=== PATIENT | male | born 1935 | race Caucasian/White ===

== ENCOUNTER 2018-01-06 13:43 | Emergency (ER) | payer MEDICARE, BC ==
--- NOTE | 2018-01-06 15:43 | RAD ---
THREE VIEWS LUMBAR SPINE 01/06/18 INDICATION: Low back pain. FINDINGS: There are laminectomy changes at L5. Laminotomy changes are seen at L4. There is mild degenerative de xtroscoliosis of the lumbar spine. there is multilevel moderate disc degenerative disease and facet o steoarthritic change. No acute fracture or subluxation grossly evident. There is scattered vascular c alcifications involving the abdominal aorta. IMPRESSION: 1. No acute osseous abnormality. 2. Postoperative change of the lumbar spine. 3. Moderate spondylosis of the lumbar spine. POS: CHRIS
== END 2018-01-06 16:11 | disposition home or self-care (01) ==
LOC: SCSER 13:43
DX: M54.42 Lumbago with sciatica, left side (principal); I10 Essential (primary) hypertension
CPT/HCPCS: 72100

== ENCOUNTER 2018-01-18 09:49 | Outpatient (CLI) | payer MEDICARE, BC | END 2018-01-18 09:50 | disposition home or self-care (01) | LOC: TBSIIMAG 09:49 | PROVIDERS: ATTEND Neurological Surgery | DX: Z53.8 Procedure and treatment not carried out for other reasons (principal) | CPT/HCPCS: 72158; 82565 ==

== ENCOUNTER 2018-10-15 03:34 | Emergency (ER) | payer MEDICARE, BC | END 2018-10-15 04:42 | disposition home or self-care (01) | LOC: SCSER 03:34 | DX: R05 Cough (principal); K21.9 Gastro-esophageal reflux disease without esophagitis; I10 Essential (primary) hypertension | CPT/HCPCS: J7620 ==

== ENCOUNTER 2018-10-22 12:12 | Emergency (ER) | payer MEDICARE, BC ==
[2018-10-22 13:13] LABS: Hemoglobin 14.1 g/dL (14.0-18.0); Mean Corpuscular HGB CONC 34.8 g/dL (32.0-36.0); Mean Corpuscular Hemoglobin 30.6 pg (27.0-31.0); Mean Corpuscular Volume 88.1 fL (78.0-98.0); Mean Platelet Volume 8.8 fL (7.4-10.4); Platelet Count 148 thou/uL (130-400); Red Blood Cell (RBC) Count 4.61 mill/uL (4.70-6.10); White Blood Cell (WBC) Count 9.1 thou/uL (4.8-10.8)
--- NOTE | 2018-10-22 13:18 | RAD ---
Chest 2 views HISTORY: Cough. COMPARISON: 10/13/2018. FINDINGS: Cardiac silhouette and pulmonary vasculature are unremarkable. Mediastinum is midline. Line ar atelectasis at the left lateral costophrenic angle is similar in appearance to the prior exam. Calcification over the aorta. No confluent airspace consolidation, pneumothorax, or pleural fluid are apparent. IMPRESSION: Atherosclerosis. Chronic-type findings are stable. No active cardiopulmonary abnormalities are demonstrated.
[2018-10-22 13:27] LABS: ALT (SGPT) 62 U/L (8-55); AST (SGOT) 32 U/L (5-34); Albumin 1.8 g/dL (3.4-4.8); Alkaline Phosphatase 54 U/L (40-150); Anion Gap 7 mmol/L (10-20); BUN (Urea Nitrogen) 17 mg/dL (8.4-25.7); Bilirubin, Total 0.7 mg/dL (0.2-1.2); CK (CPK) 359 U/L (30-200); Calc. Creatinine Clearance 0 mL/min (70-130); Calcium 7.7 mg/dL (7.8-10.44); Carbon Dioxide 26 mmol/L (23-31); Chloride 100 mmol/L (98-107); Estimated GFR-MDRD Greater than 90; Globulin 2.3 g/dL (2.4-3.5); Glucose 109 mg/dL (83-110); Lipase 28 U/L (8-78); Potassium 4.1 mmol/L (3.5-5.1); Protein, Total 4.1 g/dL (5.8-8.1); Sodium 129 mmol/L (136-145)
[2018-10-22 13:33] LABS: Lymphocytes 9 % (21-51); MDiff Complete? YES; Monocytes 11 % (0-10); Neutrophil 79 % (42-75)
[2018-10-22 13:34] LABS: Troponin I Less than 0.010 ng/mL (< 0.028)
[2018-10-22 13:37] LABS: Bilirubin Negative (Negative); Blood, Urine Negative (Negative); Clarity Clear (Clear); Glucose, Urine (Dipstick) Negative (Negative); Leukocyte Negative (Negative); Nitrite Negative (Negative); Protein, Urine (Dipstick) 100 mg/dL (Neg-Trace); Specific Gravity, Urine 1.015 (1.005-1.030); Urobilinogen 0.2 mg/dL (0.2-1.0)
[2018-10-22 13:51] LABS: Bacteria/HPF Rare-Few HPF (None Seen); RBC/HPF 0-3 HPF (0-3); Squamous Epithelial None Seen HPF (0-3); WBC/HPF 0-3 HPF (0-3)
== END 2018-10-22 14:00 | disposition home or self-care (01) ==
LOC: SCSER 12:12
DX: R60.0 Localized edema (principal); K21.9 Gastro-esophageal reflux disease without esophagitis; I10 Essential (primary) hypertension; Z79.51 Long term (current) use of inhaled steroids; Z79.899 Other long term (current) drug therapy
CPT/HCPCS: 71046; 80053; 81003; 81015; 82550; 83690; 83880; 84484; 85025; 93005

== ENCOUNTER 2018-10-22 15:19 | Outpatient (CLI) | payer MEDICARE, BC ==
--- NOTE | 2018-10-22 16:22 | ULT ---
Bilateral renal ultrasound CLINICAL INDICATION: Chronic renal failure COMPARISON: 09/03/2015 FINDINGS: Right kidney: Complex hypoechoic focus of the right kidney, slightly exophytic from the superior pole , not well discerned. No overt hydronephrosis of the right kidney. Left kidney: No solid mass, or hydronephrosis. There is a prominent sized left renal cyst, documented greater than 9 cm, with suggestion of mild internal debris. Additional, smaller cyst measures approximately 4 cm. Urinary bladder: Incompletely distended, limiting assessment. A mild post void residual is seen. IMPRESSION: Bilateral renal cysts, as above. No evidence of hydronephrosis within either kidney. Decompressed urinary bladder.
== END 2018-10-22 15:20 | disposition home or self-care (01) ==
LOC: SCSULT 15:19
PROVIDERS: ATTEND Internal Medicine Nephrology
DX: N18.3 Chronic kidney disease, stage 3 (moderate) (principal); N28.1 Cyst of kidney, acquired; N32.89 Other specified disorders of bladder
CPT/HCPCS: 71046; 76770; 80053; 81003; 81015; 82550; 83690; 83880; 84484; 85025; 93005

== ENCOUNTER 2019-03-26 09:47 | Outpatient (CLI) | payer MEDICARE, BC ==
[~2019-03-26 09:47] MED LIST: Iopamidol 370 76% 100 ML VIAL ONE
--- NOTE | 2019-03-26 12:22 | CT ---
CT abdomen and pelvis with IV and oral contrast HISTORY: Abdominal pain. Weight loss. COMPARISON: 10/05/2009. FINDINGS: Lung bases are clear. Multiple cysts are again seen throughout the liver. The large cyst at the posterior aspect of the left kidney now measures up to 10.5 x 8.5 cm greatest diameters, significantly larger than on the previous study. Smaller cysts involve the cortex of each kidney. Gallbladder surgically absent. Calcification throughout the arterial structures. Diverticula througho ut the colon. No evidence of inflammation. Postoperative changes lower lumbar spine. Small hiatal hernia. IMPRESSION: Significant interval enlargement of the left renal cyst, now measuring up to 10.5 cm. The se are usually asymptomatic, even at this size. Diverticulosis. No evidence of diverticulitis. Atherosclerosis. Small hiatal hernia.
== END 2019-03-26 09:48 | disposition home or self-care (01) ==
LOC: SCSCT 09:47
PROVIDERS: ATTEND Family Medicine
DX: R63.4 Abnormal weight loss (principal); R10.32 Left lower quadrant pain; I70.90 Unspecified atherosclerosis; K44.9 Diaphragmatic hernia without obstruction or gangrene; N28.1 Cyst of kidney, acquired; K57.90 Diverticulosis of intestine, part unspecified, without perforation or abscess without bleeding
CPT/HCPCS: 74177; Q9967

== ENCOUNTER 2022-07-22 11:28 | Outpatient (CLI) | payer MEDICARE, BC | END 2022-07-22 11:29 | disposition home or self-care (01) | LOC: BICRAD 11:28 | PROVIDERS: ATTEND Family Medicine | DX: R07.89 Other chest pain (principal); J90 Pleural effusion, not elsewhere classified; J98.11 Atelectasis | CPT/HCPCS: 71046 ==

== ENCOUNTER 2022-08-12 16:28 | Outpatient (CLI) | payer MEDICARE, BC | END 2022-08-12 16:29 | disposition home or self-care (01) | LOC: BICRAD 16:28 | PROVIDERS: ATTEND Family Medicine | DX: J90 Pleural effusion, not elsewhere classified (principal) | CPT/HCPCS: 71046 ==

== ENCOUNTER 2022-08-19 09:04 | Outpatient (CLI) | payer MEDICARE, BC ==
[2022-08-19] MEDS ORDERED: Iopamidol 370 76% 100 ML VIAL ONE (13:43)
== END 2022-08-19 09:05 | disposition home or self-care (01) ==
LOC: CT 09:04
PROVIDERS: ATTEND Family Medicine
DX: J90 Pleural effusion, not elsewhere classified (principal); I25.10 Atherosclerotic heart disease of native coronary artery without angina pectoris
CPT/HCPCS: 71260; 82565; Q9967

== ENCOUNTER 2022-08-30 10:03 | Outpatient (CLI) | payer MEDICARE, BC ==
[2022-08-30] MEDS ORDERED: Iopamidol-370 76% 500 ML 1 ML ONE (11:33)
== END 2022-08-30 10:04 | disposition home or self-care (01) ==
LOC: BICCT 10:03
PROVIDERS: ATTEND Family Medicine
DX: K40.90 Unilateral inguinal hernia, without obstruction or gangrene, not specified as recurrent (principal); J90 Pleural effusion, not elsewhere classified; N28.1 Cyst of kidney, acquired; K76.89 Other specified diseases of liver; K57.90 Diverticulosis of intestine, part unspecified, without perforation or abscess without bleeding; N40.0 Benign prostatic hyperplasia without lower urinary tract symptoms
CPT/HCPCS: 74178; Q9967

== ENCOUNTER 2022-09-14 10:02 | Outpatient (CLI) | payer MEDICARE, BC | END 2022-09-14 10:03 | disposition home or self-care (01) | LOC: RAD 10:02 | PROVIDERS: ATTEND Internal Medicine Critical Care Medicine | DX: R06.00 Dyspnea, unspecified (principal); J90 Pleural effusion, not elsewhere classified; J98.11 Atelectasis | CPT/HCPCS: 71046 ==

== ENCOUNTER 2022-10-03 11:40 | Outpatient (CLI) | payer MEDICARE, BC ==
[2022-10-03 13:24] LABS: Anion Gap 10 mmol/L (10-20); BUN (Urea Nitrogen) 20 mg/dL (8.4-25.7); Calc. Creatinine Clearance 0 mL/min (70-130); Calcium 8.5 mg/dL (7.8-10.44); Carbon Dioxide 26 mmol/L (23-31); Chloride 101 mmol/L (98-107); Estimated GFR 85; Glucose 99 mg/dL (83-110); Potassium 4.4 mmol/L (3.5-5.1); Sodium 133 mmol/L (136-145)
[2022-10-03 13:27] LABS: #Eosinphils 0.2 10x3/uL (0.0-0.5); #Monocytes 0.7 10x3/uL (0.0-1.1); #Neutrophils 4.2 10x3/uL (1.5-8.4); %Basophils 0.3 % (0.0-2.0); %Eosinophils 3.2 % (0.0-6.0); %Lymphocytes 12.6 % (18.0-47.0); %Monocytes 11.3 % (0.0-10.0); %Neutrophils 72.3 % (40.0-75.0); Hemoglobin 13.9 g/dL (13.5-17.5); Mean Corpuscular HGB CONC 33.9 g/dL (32.0-36.0); Mean Corpuscular Hemoglobin 28.7 pg (27.0-33.0); Mean Corpuscular Volume 84.7 fl (81.2-95.1); Mean Platelet Volume 10.7 fl (7.4-10.4); Platelet Count 108 10x3/uL (150-450); RBC Distribution Width 13.7 % (11.5-14.5); Red Blood Cell (RBC) Count 4.84 10x6/uL (4.32-5.72); White Blood Cell (WBC) Count 5.9 10x3/uL (3.5-10.5)
== END 2022-10-03 11:41 | disposition home or self-care (01) ==
LOC: LABBT 11:40
PROVIDERS: ATTEND Surgery
DX: Z01.818 Encounter for other preprocedural examination (principal); K40.90 Unilateral inguinal hernia, without obstruction or gangrene, not specified as recurrent
CPT/HCPCS: 80048; 85025; 93005; 93010

== ENCOUNTER 2022-10-05 10:09 | Day surgery (SDC) | payer MEDICARE, BC ==
[2022-10-03 16:19] VITALS: BMI 26.4
[2022-10-05] MEDS ORDERED: Bupivacaine/Epinephrine 0.25% 30 ML VIAL ONE (11:21)
[2022-10-05] MEDS ORDERED: fentaNYL 50 mcg/mL 1 mL Vial ONE ×2 (11:45)
[2022-10-05] MEDS ORDERED: SUGAMMADEX SODIUM 200 MG/2 ML VIAL ONE (11:45)
[2022-10-05] MEDS ORDERED: Sodium Chloride 0.9% 100 ML ONE (12:05)
[2022-10-05] MEDS ORDERED: CEFAZOLIN 2 GM VIAL ONE (12:05)
[2022-10-05] MEDS ORDERED: Labetalol HCl 100 MG/20 ML VIAL ONE (12:17)
[2022-10-05] MEDS ORDERED: ePHEDrine Sulfate 50 MG/10 ML VIAL ONE (12:17)
[2022-10-05] MEDS ORDERED: PROPOFOL 200 MG/20 ML VIAL ONE (12:17)
[2022-10-05] MEDS ORDERED: Lidocaine 1% PF 5 ML VIAL ONE (12:17)
[2022-10-05] MEDS ORDERED: Rocuronium Bromide 10 MG/ML (10ML VIAL) ONE (12:17)
[2022-10-05] MEDS ORDERED: GLYCOPYRROLATE/PF 0.2 MG/ML VIAL ONE (12:17)
[2022-10-05] MEDS ORDERED: NEOSTIGMINE 3 MG/3 ML SYR 3 MG/3 ML SYRINGE ONE (12:17)
== END 2022-10-05 16:08 | disposition home or self-care (01) ==
LOC: SDC 10:09
PROVIDERS: ATTEND Surgery
PROC: 0YUA4JZ Supplement Bilateral Inguinal Region with Synthetic Substitute, Percutaneous Endoscopic Approach (ICD-10-PCS; principal; 2022-10-05)
PROC: 8E0W4CZ Robotic Assisted Procedure of Trunk Region, Percutaneous Endoscopic Approach (ICD-10-PCS; 2022-10-05)
DX: K40.20 Bilateral inguinal hernia, without obstruction or gangrene, not specified as recurrent (principal); I10 Essential (primary) hypertension; K21.9 Gastro-esophageal reflux disease without esophagitis; Z79.899 Other long term (current) drug therapy; Z88.1 Allergy status to other antibiotic agents; Z91.018 Allergy to other foods
CPT/HCPCS: 49650; C1781 ×2; J3010; J3490; J2704

== ENCOUNTER 2023-03-21 10:16 | Outpatient (CLI) | payer MEDICARE, BC ==
[2023-03-21] MEDS ORDERED: Iopamidol 370 76% 100 ML VIAL ONE (15:25)
== END 2023-03-21 10:17 | disposition home or self-care (01) ==
LOC: BICCT 10:16
PROVIDERS: ATTEND Urology
DX: N28.1 Cyst of kidney, acquired (principal); R80.9 Proteinuria, unspecified; J90 Pleural effusion, not elsewhere classified
CPT/HCPCS: 74178; Q9967

== ENCOUNTER 2023-05-01 10:33 | Inpatient (IN) | payer MEDICARE, BC ==
[~2023-05-01 10:33] MED LIST changes: -Iopamidol 370 76% 100 ML VIAL ONE; +Iopamidol-370 76% 500 ML MDV (1 ML CHARGE) ONE
[2023-05-01 11:24] LABS: #Neutrophils 6.5 thou/uL (1.40-6.50); %Basophils 0.4 % (0.0-1.0); %Eosinophils 0.5 % (0.0-10.0); %Lymphocytes 6.9 % (21.0-51.0); %Neutrophils 79.8 % (42.0-75.0); Hematocrit 32.4 % (42.0-52.0); Hemoglobin 11.1 g/dL (14.0-18.0); Mean Corpuscular HGB CONC 34.3 g/dL (32.0-36.0); Mean Corpuscular Hemoglobin 30.9 pg (27.0-31.0); Mean Corpuscular Volume 90.3 fl (78.0-98.0); Mean Platelet Volume 10.1 fL (7.4-10.4); Platelet Count 138 10x3/uL (130-400); RBC Distribution Width 14.2 % (11.5-14.5); Red Blood Cell (RBC) Count 3.59 mill/uL (4.70-6.10); White Blood Cell (WBC) Count 8.2 10x3/uL (4.8-10.8)
[2023-05-01 12:00] LABS: Troponin I 0.027 ng/mL (< 0.028)
[2023-05-01 12:03] LABS: ALT (SGPT) 28 U/L (8-55); AST (SGOT) 27 U/L (5-34); Albumin 1.9 g/dL (3.4-4.8); Alkaline Phosphatase 70 U/L (40-110); Anion Gap 10 mmol/L (10-20); BUN (Urea Nitrogen) 37 mg/dL (8.4-25.7); Bilirubin, Total 0.5 mg/dL (0.2-1.2); Calc. Creatinine Clearance 0 mL/min (70-130); Calcium 7.8 mg/dL (7.8-10.44); Carbon Dioxide 29 mmol/L (23-31); Chloride 101 mmol/L (98-107); Estimated GFR 65; Globulin 2.4 g/dL (2.4-3.5); Glucose 109 mg/dL (83-110); Lipase 23 U/L (8-78); Potassium 4.2 mmol/L (3.5-5.1); Protein, Total 4.3 g/dL (5.8-8.1); Sodium 136 mmol/L (136-145)
[2023-05-01] MEDS ORDERED: Acetaminophen 325 MG TAB PO PRN (14:13)
[2023-05-01] MEDS ORDERED: Nitroglycerin 0.4 MG TAB (25 Tab Bottle) SL PRN (14:15)
[2023-05-01] MEDS ORDERED: Furosemide 20 MG/2 ML VIAL SLOW IVP SCH (14:15)
[2023-05-01 14:44] LABS: Troponin I 0.027 ng/mL (< 0.028)
[2023-05-01 18:39] LABS: Troponin I 0.019 ng/mL (< 0.028)
[2023-05-01] MEDS ORDERED: Ondansetron PF 4 MG/2 ML Vial IVP PRN (20:00)
[2023-05-01] MEDS ORDERED: Ondansetron ODT 4 MG TAB SL PRN (20:00)
[2023-05-01] MEDS: Heparin 5,000 UNITS/ML VIAL SC SCH ×2 (21:09)
[2023-05-01] MEDS: Atorvastatin Calcium 40 MG TAB PO SCH (21:09)
[2023-05-01] MEDS: Metoprolol Tartrate 25 MG TAB PO SCH (21:09)
[2023-05-02 05:34] LABS: #Eosinphils 0.1 thou/uL (0.0-0.7); #Neutrophils 3.9 thou/uL (1.40-6.50); %Basophils 0.5 % (0.0-1.0); %Eosinophils 1.9 % (0.0-10.0); %Lymphocytes 14.4 % (21.0-51.0); %Monocytes 16.6 % (0.0-10.0); %Neutrophils 66.3 % (42.0-75.0); Hematocrit 29.8 % (42.0-52.0); Hemoglobin 10.2 g/dL (14.0-18.0); Mean Corpuscular HGB CONC 34.2 g/dL (32.0-36.0); Mean Corpuscular Hemoglobin 31.1 pg (27.0-31.0); Mean Corpuscular Volume 90.9 fl (78.0-98.0); Mean Platelet Volume 10.4 fL (7.4-10.4); Platelet Count 126 10x3/uL (130-400); RBC Distribution Width 14.4 % (11.5-14.5); Red Blood Cell (RBC) Count 3.28 mill/uL (4.70-6.10); White Blood Cell (WBC) Count 5.8 10x3/uL (4.8-10.8)
[2023-05-02 06:06] LABS: Anion Gap 9 mmol/L (10-20); BUN (Urea Nitrogen) 40 mg/dL (8.4-25.7); Calc. Creatinine Clearance 61 mL/min (70-130); Calcium 7.6 mg/dL (7.8-10.44); Carbon Dioxide 29 mmol/L (23-31); Chloride 102 mmol/L (98-107); Estimated GFR 64; Glucose 87 mg/dL (83-110); Potassium 3.8 mmol/L (3.5-5.1); Sodium 136 mmol/L (136-145)
[2023-05-02] MEDS ORDERED: Furosemide 20 MG/2 ML VIAL SLOW IVP SCH (09:00)
[2023-05-02] MEDS: Heparin 5,000 UNITS/ML VIAL SC SCH ×3 (09:03→20:27)
[2023-05-02] MEDS: Aspirin 81 mg Enteric Coated Tablet PO SCH (09:03)
[2023-05-02] MEDS: Metoprolol Tartrate 25 MG TAB PO SCH ×2 (09:22→20:27)
[2023-05-02] MEDS ORDERED: Losartan 25 MG TAB PO SCH (11:00)
[2023-05-02] MEDS: hydrALAZINE 20 MG/ML VIAL SLOW IVP PRN (16:39)
[2023-05-02 17:26] LABS: Creatinine, Urine 97.54 mg/dL (63-166)
[2023-05-02 19:10] LABS: Bilirubin Negative (Negative); Blood, Urine Trace (Negative); Clarity Clear (Clear); Glucose, Urine (Dipstick) Normal (Negative); Ketone, Urine Negative (Negative); Leukocyte Negative Leu/uL (Negative); Nitrite Negative (Negative); Protein, Urine (Dipstick) Greater than 600 mg/dL (Neg-Trace); Specific Gravity, Urine 1.034 (1.002-1.036); Urobilinogen Normal mg/dL (Less than 2); pH, Urine 7.5 (5.0-9.0)
[2023-05-02] MEDS: Atorvastatin Calcium 40 MG TAB PO SCH (20:27)
[2023-05-02] MEDS: Furosemide 40 MG/4 ML VIAL SLOW IVP SCH (20:27)
[2023-05-03 04:35] LABS: #Eosinphils 0.2 thou/uL (0.0-0.7); #Monocytes 0.8 thou/uL (0.11-0.59); #Neutrophils 3.6 thou/uL (1.40-6.50); %Basophils 0.6 % (0.0-1.0); %Eosinophils 3.2 % (0.0-10.0); %Lymphocytes 13.7 % (21.0-51.0); %Monocytes 14.3 % (0.0-10.0); %Neutrophils 67.8 % (42.0-75.0); Hematocrit 31.8 % (42.0-52.0); Mean Corpuscular HGB CONC 34.6 g/dL (32.0-36.0); Mean Corpuscular Hemoglobin 31.2 pg (27.0-31.0); Mean Corpuscular Volume 90.1 fl (78.0-98.0); Mean Platelet Volume 10.4 fL (7.4-10.4); Platelet Count 130 10x3/uL (130-400); RBC Distribution Width 14.4 % (11.5-14.5); Red Blood Cell (RBC) Count 3.53 mill/uL (4.70-6.10); White Blood Cell (WBC) Count 5.3 10x3/uL (4.8-10.8)
[2023-05-03 05:25] LABS: Anion Gap 11 mmol/L (10-20); BUN (Urea Nitrogen) 40 mg/dL (8.4-25.7); Calc. Creatinine Clearance 60 mL/min (70-130); Calcium 7.7 mg/dL (7.8-10.44); Carbon Dioxide 28 mmol/L (23-31); Chloride 102 mmol/L (98-107); Estimated GFR 63; Glucose 82 mg/dL (83-110); Potassium 3.8 mmol/L (3.5-5.1); Sodium 137 mmol/L (136-145)
[2023-05-03] MEDS: hydrALAZINE 20 MG/ML VIAL SLOW IVP PRN (05:36)
[2023-05-03] MEDS ORDERED: Losartan 25 MG TAB PO SCH (09:00)
[2023-05-03] MEDS: Furosemide 40 MG/4 ML VIAL SLOW IVP SCH ×2 (09:11→20:51)
[2023-05-03] MEDS: Heparin 5,000 UNITS/ML VIAL SC SCH ×3 (09:11→20:50)
[2023-05-03] MEDS: Metoprolol Tartrate 25 MG TAB PO SCH ×2 (09:11→20:50)
[2023-05-03] MEDS: Aspirin 81 mg Enteric Coated Tablet PO SCH (09:12)
[2023-05-03 16:31] VITALS: BMI 28.0
[2023-05-03] MEDS: Atorvastatin Calcium 40 MG TAB PO SCH (20:50)
[2023-05-04] MEDS: hydrALAZINE 20 MG/ML VIAL SLOW IVP PRN (03:52)
[2023-05-04 04:57] LABS: #Basophils 0.1 thou/uL (0.0-0.2); #Eosinphils 0.1 thou/uL (0.0-0.7); #Monocytes 0.7 thou/uL (0.11-0.59); #Neutrophils 3.6 thou/uL (1.40-6.50); %Basophils 0.9 % (0.0-1.0); %Eosinophils 2.7 % (0.0-10.0); %Lymphocytes 14.8 % (21.0-51.0); %Monocytes 12.9 % (0.0-10.0); %Neutrophils 68.3 % (42.0-75.0); Hematocrit 33.1 % (42.0-52.0); Hemoglobin 11.4 g/dL (14.0-18.0); Mean Corpuscular HGB CONC 34.4 g/dL (32.0-36.0); Mean Corpuscular Hemoglobin 30.6 pg (27.0-31.0); Mean Corpuscular Volume 88.7 fl (78.0-98.0); Mean Platelet Volume 10.3 fL (7.4-10.4); Platelet Count 153 10x3/uL (130-400); RBC Distribution Width 14.5 % (11.5-14.5); Red Blood Cell (RBC) Count 3.73 mill/uL (4.70-6.10); White Blood Cell (WBC) Count 5.3 10x3/uL (4.8-10.8)
[2023-05-04 05:26] LABS: Anion Gap 11 mmol/L (10-20); BUN (Urea Nitrogen) 42 mg/dL (8.4-25.7); Calc. Creatinine Clearance 62 mL/min (70-130); Calcium 7.6 mg/dL (7.8-10.44); Carbon Dioxide 25 mmol/L (23-31); Chloride 102 mmol/L (98-107); Estimated GFR 66; Glucose 83 mg/dL (83-110); Potassium 3.8 mmol/L (3.5-5.1); Sodium 134 mmol/L (136-145)
[2023-05-04 07:12] LABS: Magnesium 1.8 mg/dL (1.6-2.6)
[2023-05-04 07:17] LABS: Troponin I 0.028 ng/mL (< 0.028)
[2023-05-04] MEDS ORDERED: FLU VACC QS2023(65UP)/MF59C/PF 60 MCG/0.5 ML SYRINGE IM ONE (09:00)
[2023-05-04] MEDS ORDERED: Magnesium Oxide 400 MG TAB PO SCH (09:00)
[2023-05-04] MEDS ORDERED: Losartan 25 MG TAB PO SCH (09:00)
[2023-05-04] MEDS: Furosemide 40 MG/4 ML VIAL SLOW IVP SCH (09:21)
[2023-05-04] MEDS: Aspirin 81 mg Enteric Coated Tablet PO SCH (09:21)
[2023-05-04] MEDS: Metoprolol Tartrate 25 MG TAB PO SCH (09:22)
[2023-05-04 09:23] LABS: HBSAB Concentration Less than 8.00 mIU/mL; HBSAg Index 0.79 S/CO (0-0.99); HIV (1/2) Antibody/Antigen Non-Reactive (NonReactive); HIV 1/2 INDEX 0.66 S/CO (<1.00); Hep B Surf AB Non-Reactive (NonReactive); Hep B Surf Ag Non-Reactive S/CO (NonReactive); Hep C IgG Ab Non-Reactive S/CO (NonReactive); Hep C Index 0.07 S/CO (0-0.79)
[2023-05-04] MEDS: Heparin 5,000 UNITS/ML VIAL SC SCH ×2 (09:28→14:22)
[2023-05-04 12:30] VITALS: TEMP 97.9
[2023-05-04 15:33] VITALS: BP 124/60
[2023-05-04] MEDS ORDERED: Metoprolol Tartrate 25 MG TAB PO SCH (21:00)
[2023-05-05] MEDS ORDERED: Metolazone 2.5 MG TAB PO SCH (08:30)
[2023-05-05 16:39] LABS: A/G Ratio 0.6 (0.7-1.7); Albumin 1.5 g/dL (2.9-4.4); Alpha 1 0.2 g/dL (0.0-0.4); Alpha 2 0.8 g/dL (0.4-1.0); Gamma 0.4 g/dL (0.4-1.8); Globulin, Total 2.5 g/dL (2.2-3.9); M-Spike Not Observed g/dL (Not Observed)
[2023-05-05 17:10] LABS: Albumin-Ur 51.9 % (.); Alpha 1 - Ur 13.7 % (.); Alpha 2 - Ur 8.5 % (.); Gamma-Ur 7.9 % (.); M-Spike,% Not Observed % (Not Observed); Protein, Urine 1076.2 mg/dL (Not Estab.)
== END 2023-05-04 18:00 | disposition home health service (06) | DRG 291 ==
LOC: ERS 10:33 → ERHOLD 13:26 → 2NO 18:36 → OBSVTOIN 05-03 08:54
PROVIDERS: ADMIT Internal Medicine; ATTEND Emergency Medicine
DX: I13.0 Hypertensive heart and chronic kidney disease with heart failure and stage 1 through stage 4 chronic kidney disease, or unspecified chronic kidney disease (principal); I50.33 Acute on chronic diastolic (congestive) heart failure; J90 Pleural effusion, not elsewhere classified; I47.20 Ventricular tachycardia, unspecified; N17.9 Acute kidney failure, unspecified; K21.9 Gastro-esophageal reflux disease without esophagitis; L40.9 Psoriasis, unspecified; N18.2 Chronic kidney disease, stage 2 (mild); D47.2 Monoclonal gammopathy; D64.9 Anemia, unspecified; R60.1 Generalized edema; Z88.1 Allergy status to other antibiotic agents; Z91.048 Other nonmedicinal substance allergy status; Z91.018 Allergy to other foods; Z79.82 Long term (current) use of aspirin; Z79.899 Other long term (current) drug therapy; Z90.49 Acquired absence of other specified parts of digestive tract; Z98.890 Other specified postprocedural states
CPT/HCPCS: 36415; 71045; 71275; 80048; 80053; 81003; 82570; 83690; 83735; 83880; 84100; 84155; 84156; 84165; 84166; 84484; 85025; 85379; 86706; 86803; 87340; 87389; 90471; 90694; 93005; 93306; G0008; J0360; J1644; J1940; Q9967

== ENCOUNTER 2023-05-08 15:44 | Outpatient (CLI) | payer MEDICARE, BC | END 2023-05-08 15:45 | disposition home or self-care (01) | LOC: SJX 15:44 | PROVIDERS: ATTEND Internal Medicine | DX: D47.2 Monoclonal gammopathy (principal); C90.00 Multiple myeloma not having achieved remission | CPT/HCPCS: 77075; 83883; 84166; 86335 ==

== ENCOUNTER 2023-05-20 10:15 | Emergency (ER) | payer MEDICARE, BC ==
[2023-05-20 11:23] LABS: #Eosinphils 0.1 thou/uL (0.0-0.7); #Monocytes 0.6 thou/uL (0.11-0.59); #Neutrophils 4.1 thou/uL (1.40-6.50); %Basophils 0.6 % (0.0-1.0); %Eosinophils 2.4 % (0.0-10.0); %Monocytes 10.8 % (0.0-10.0); %Neutrophils 76.8 % (42.0-75.0); Hematocrit 27.8 % (42.0-52.0); Hemoglobin 9.4 g/dL (14.0-18.0); Mean Corpuscular HGB CONC 33.8 g/dL (32.0-36.0); Mean Corpuscular Hemoglobin 31.3 pg (27.0-31.0); Mean Corpuscular Volume 92.7 fl (78.0-98.0); Mean Platelet Volume 9.6 fL (7.4-10.4); Platelet Count 178 10x3/uL (130-400); RBC Distribution Width 14.9 % (11.5-14.5); White Blood Cell (WBC) Count 5.4 10x3/uL (4.8-10.8)
[2023-05-20 11:47] LABS: ALT (SGPT) 14 U/L (8-55); AST (SGOT) 21 U/L (5-34); Albumin 1.6 g/dL (3.4-4.8); Alkaline Phosphatase 74 U/L (40-110); Anion Gap 9 mmol/L (10-20); BUN (Urea Nitrogen) 30 mg/dL (8.4-25.7); Bilirubin, Total 0.4 mg/dL (0.2-1.2); Calc. Creatinine Clearance 0 mL/min (70-130); Calcium 7.6 mg/dL (7.8-10.44); Carbon Dioxide 28 mmol/L (23-31); Chloride 102 mmol/L (98-107); Estimated GFR 77; Globulin 2.6 g/dL (2.4-3.5); Glucose 92 mg/dL (83-110); Potassium 4.4 mmol/L (3.5-5.1); Protein, Total 4.2 g/dL (5.8-8.1); Sodium 135 mmol/L (136-145)
[2023-05-20 11:51] LABS: Troponin I 0.027 ng/mL (< 0.028)
[2023-05-20] MEDS ORDERED: Furosemide 40 MG/4 ML VIAL ONE (12:08)
== END 2023-05-20 14:40 | disposition home or self-care (01) ==
LOC: ERS 10:15
DX: J90 Pleural effusion, not elsewhere classified (principal); R60.9 Edema, unspecified; I10 Essential (primary) hypertension
CPT/HCPCS: 36415; 71045; 80053; 83880; 84484; 85025; 93005; 96374; J1940

== ENCOUNTER 2023-05-22 11:44 | Emergency (ER) | payer MEDICARE, BC ==
[2023-05-22 12:43] LABS: #Eosinphils 0.2 thou/uL (0.0-0.7); #Monocytes 0.8 thou/uL (0.11-0.59); #Neutrophils 5.1 thou/uL (1.40-6.50); %Basophils 0.4 % (0.0-1.0); %Eosinophils 2.7 % (0.0-10.0); %Lymphocytes 10.3 % (21.0-51.0); %Monocytes 12.2 % (0.0-10.0); %Neutrophils 74.1 % (42.0-75.0); Hematocrit 30.7 % (42.0-52.0); Hemoglobin 10.4 g/dL (14.0-18.0); Mean Corpuscular HGB CONC 33.9 g/dL (32.0-36.0); Mean Corpuscular Volume 91.6 fl (78.0-98.0); Mean Platelet Volume 9.9 fL (7.4-10.4); Platelet Count 184 10x3/uL (130-400); RBC Distribution Width 15.1 % (11.5-14.5); Red Blood Cell (RBC) Count 3.35 mill/uL (4.70-6.10); White Blood Cell (WBC) Count 6.9 10x3/uL (4.8-10.8)
[2023-05-22 12:55] LABS: ALT (SGPT) 18 U/L (8-55); AST (SGOT) 23 U/L (5-34); Albumin 1.6 g/dL (3.4-4.8); Alkaline Phosphatase 84 U/L (40-110); Anion Gap 10 mmol/L (10-20); BUN (Urea Nitrogen) 30 mg/dL (8.4-25.7); Bilirubin, Total 0.4 mg/dL (0.2-1.2); Calc. Creatinine Clearance 0 mL/min (70-130); Calcium 7.7 mg/dL (7.8-10.44); Carbon Dioxide 31 mmol/L (23-31); Chloride 100 mmol/L (98-107); Estimated GFR 63; Globulin 2.9 g/dL (2.4-3.5); Glucose 76 mg/dL (83-110); Potassium 4.4 mmol/L (3.5-5.1); Protein, Total 4.5 g/dL (5.8-8.1); Sodium 137 mmol/L (136-145)
[2023-05-22 12:59] LABS: Troponin I 0.022 ng/mL (< 0.028)
[2023-05-22] MEDS ORDERED: Furosemide 40 MG/4 ML VIAL ONE (13:59)
== END 2023-05-22 15:26 | disposition home or self-care (01) ==
LOC: ERS 11:44
DX: I11.0 Hypertensive heart disease with heart failure (principal); I50.9 Heart failure, unspecified; E87.70 Fluid overload, unspecified; K21.9 Gastro-esophageal reflux disease without esophagitis; Z79.899 Other long term (current) drug therapy; Z79.82 Long term (current) use of aspirin
CPT/HCPCS: 36415; 71045; 80053; 83880; 84484; 85025; 93005; 96374; J1940

== ENCOUNTER 2023-06-03 15:44 | Emergency (ER) | payer MEDICARE, BC ==
[2023-06-03] MEDS ORDERED: Furosemide 40 MG/4 ML VIAL ONE (16:41)
[2023-06-03 16:52] LABS: #Eosinphils 0.1 thou/uL (0.0-0.7); #Monocytes 0.7 thou/uL (0.11-0.59); %Basophils 0.3 % (0.0-1.0); %Eosinophils 2.2 % (0.0-10.0); %Lymphocytes 7.2 % (21.0-51.0); %Monocytes 10.7 % (0.0-10.0); %Neutrophils 79.4 % (42.0-75.0); Hematocrit 32.7 % (42.0-52.0); Hemoglobin 11.1 g/dL (14.0-18.0); Mean Corpuscular HGB CONC 33.9 g/dL (32.0-36.0); Mean Corpuscular Hemoglobin 31.4 pg (27.0-31.0); Mean Corpuscular Volume 92.6 fl (78.0-98.0); Mean Platelet Volume 10.3 fL (7.4-10.4); Platelet Count 134 10x3/uL (130-400); RBC Distribution Width 15.7 % (11.5-14.5); Red Blood Cell (RBC) Count 3.53 mill/uL (4.70-6.10); White Blood Cell (WBC) Count 6.4 10x3/uL (4.8-10.8)
[2023-06-03 17:18] LABS: ALT (SGPT) 18 U/L (8-55); AST (SGOT) 23 U/L (5-34); Albumin 1.7 g/dL (3.4-4.8); Alkaline Phosphatase 82 U/L (40-110); Anion Gap 7 mmol/L (10-20); BUN (Urea Nitrogen) 36 mg/dL (8.4-25.7); Bilirubin, Total 0.6 mg/dL (0.2-1.2); Calc. Creatinine Clearance 0 mL/min (70-130); Calcium 7.9 mg/dL (7.8-10.44); Carbon Dioxide 33 mmol/L (23-31); Chloride 101 mmol/L (98-107); Estimated GFR 81; Globulin 2.8 g/dL (2.4-3.5); Glucose 98 mg/dL (83-110); Lipase 28 U/L (8-78); Potassium 4.4 mmol/L (3.5-5.1); Protein, Total 4.5 g/dL (5.8-8.1); Sodium 137 mmol/L (136-145); Troponin I 0.012 ng/mL (< 0.028)
[2023-06-03] MEDS ORDERED: Nitroglycerin 2% Ointment 1 INCH/1 GM Packet ONE (17:39)
[2023-06-03 18:01] LABS: Bacteria/HPF None Seen HPF (None Seen); Bilirubin Negative (Negative); Blood, Urine 1+ (Negative); CAUTI Indications for Culture Dysuria,urgency,freq; Clarity Clear (Clear); Glucose, Urine (Dipstick) Normal (Negative); Ketone, Urine Negative (Negative); Leukocyte Negative Leu/uL (Negative); Nitrite Negative (Negative); Protein, Urine (Dipstick) 300 mg/dL (Neg-Trace); Specific Gravity, Urine 1.024 (1.002-1.036); Squamous Epithelial 0-3 HPF (0-3); Urobilinogen Normal mg/dL (Less than 2); WBC/HPF 0-3 HPF (0-3)
[2023-06-03 18:05] LABS: Urine Culture Reflex No No
== END 2023-06-03 20:12 | disposition home or self-care (01) ==
LOC: ERS 15:44
DX: R10.11 Right upper quadrant pain (principal); E87.70 Fluid overload, unspecified; I10 Essential (primary) hypertension
CPT/HCPCS: 36415; 71045; 74176; 80053; 81001; 83690; 83880; 84484; 85025; 93005; 96374; J1940

== ENCOUNTER 2023-07-11 09:49 | Outpatient (CLI) | payer MEDICARE, BC | END 2023-07-11 09:50 | disposition home or self-care (01) | LOC: RAD 09:49 | PROVIDERS: ATTEND Internal Medicine Critical Care Medicine | DX: R06.00 Dyspnea, unspecified (principal); J98.4 Other disorders of lung | CPT/HCPCS: 71046 ==

== ENCOUNTER 2023-07-20 10:59 | Inpatient (IN) | payer BC, MEDICARE ==
[2023-07-20 12:33] LABS: #Eosinphils 0.1 thou/uL (0.0-0.7); #Monocytes 0.5 thou/uL (0.11-0.59); %Basophils 0.3 % (0.0-1.0); %Eosinophils 1.3 % (0.0-10.0); %Monocytes 7.6 % (0.0-10.0); %Neutrophils 83.5 % (42.0-75.0); Hematocrit 33.7 % (42.0-52.0); Hemoglobin 10.9 g/dL (14.0-18.0); Mean Corpuscular HGB CONC 32.3 g/dL (32.0-36.0); Mean Corpuscular Hemoglobin 30.7 pg (27.0-31.0); Mean Corpuscular Volume 94.9 fl (78.0-98.0); Platelet Count 146 10x3/uL (130-400); RBC Distribution Width 15.2 % (11.5-14.5); Red Blood Cell (RBC) Count 3.55 mill/uL (4.70-6.10)
[2023-07-20 13:07] LABS: ALT (SGPT) 15 U/L (8-55); AST (SGOT) 18 U/L (5-34); Albumin 1.9 g/dL (3.4-4.8); Alkaline Phosphatase 78 U/L (40-110); Anion Gap 9 mmol/L (10-20); BUN (Urea Nitrogen) 41 mg/dL (8.4-25.7); Bilirubin, Total 0.5 mg/dL (0.2-1.2); Calc. Creatinine Clearance 0 mL/min (70-130); Calcium 8.1 mg/dL (7.8-10.44); Carbon Dioxide 32 mmol/L (23-31); Chloride 102 mmol/L (98-107); Estimated GFR 84; Globulin 2.9 g/dL (2.4-3.5); Glucose 91 mg/dL (83-110); Potassium 4.3 mmol/L (3.5-5.1); Protein, Total 4.8 g/dL (5.8-8.1); Sodium 139 mmol/L (136-145)
[2023-07-20] MEDS ORDERED: Furosemide 100 MG (10 mL) VIAL ONE (13:24)
[2023-07-20] MEDS ORDERED: Ondansetron PF 4 MG/2 ML Vial IVP PRN (13:49)
[2023-07-20] MEDS ORDERED: Acetaminophen 325 MG TAB PO PRN (13:49)
[2023-07-20] MEDS ORDERED: Furosemide 100 MG (10 mL) VIAL SLOW IVP SCH (14:00)
[2023-07-20] MEDS: Losartan 25 MG TAB PO SCH (15:23)
[2023-07-20] MEDS: Metoprolol Tartrate 25 MG TAB PO SCH ×2 (15:23→23:13)
[2023-07-20 16:56] VITALS: BMI 29.9
[2023-07-20] MEDS: Atorvastatin Calcium 40 MG TAB PO SCH (21:54)
[2023-07-21 05:06] LABS: #Eosinphils 0.2 thou/uL (0.0-0.7); #Monocytes 0.7 thou/uL (0.11-0.59); #Neutrophils 3.8 thou/uL (1.40-6.50); %Basophils 0.4 % (0.0-1.0); %Eosinophils 3.5 % (0.0-10.0); %Lymphocytes 13.6 % (21.0-51.0); %Monocytes 12.5 % (0.0-10.0); %Neutrophils 69.8 % (42.0-75.0); Hematocrit 29.7 % (42.0-52.0); Hemoglobin 9.7 g/dL (14.0-18.0); Mean Corpuscular HGB CONC 32.7 g/dL (32.0-36.0); Mean Corpuscular Hemoglobin 30.7 pg (27.0-31.0); Mean Platelet Volume 10.1 fL (7.4-10.4); Platelet Count 148 10x3/uL (130-400); RBC Distribution Width 15.3 % (11.5-14.5); Red Blood Cell (RBC) Count 3.16 mill/uL (4.70-6.10); White Blood Cell (WBC) Count 5.4 10x3/uL (4.8-10.8)
[2023-07-21 05:25] LABS: Anion Gap 8 mmol/L (10-20); BUN (Urea Nitrogen) 43 mg/dL (8.4-25.7); Calc. Creatinine Clearance 91 mL/min (70-130); Calcium 7.8 mg/dL (7.8-10.44); Carbon Dioxide 34 mmol/L (23-31); Chloride 101 mmol/L (98-107); Estimated GFR 86; Glucose 89 mg/dL (83-110); Potassium 4.2 mmol/L (3.5-5.1); Sodium 139 mmol/L (136-145)
[2023-07-21] MEDS: Furosemide 40 MG (4 mL) VIAL SLOW IVP SCH (05:52)
[2023-07-21] MEDS: Aspirin 81 mg Enteric Coated Tablet PO SCH (08:50)
[2023-07-21] MEDS: Enoxaparin 40 MG (0.4 mL) SYRINGE SC SCH (08:50)
[2023-07-21] MEDS ORDERED: Losartan 25 MG TAB PO SCH (09:00)
[2023-07-21 18:32] LABS: Protein, Urine 493 mg/dL (1-14)
[2023-07-21 18:40] LABS: Protein - 24 Hr 5546 mg/24 hr (Less than 300); Urine Total Volume 1125 mL (250-2400)
[2023-07-22 05:17] LABS: #Eosinphils 0.2 thou/uL (0.0-0.7); #Monocytes 0.7 thou/uL (0.11-0.59); #Neutrophils 3.6 thou/uL (1.40-6.50); %Basophils 0.5 % (0.0-1.0); %Eosinophils 4.2 % (0.0-10.0); %Lymphocytes 15.2 % (21.0-51.0); %Neutrophils 66.7 % (42.0-75.0); Hematocrit 30.1 % (42.0-52.0); Hemoglobin 10.1 g/dL (14.0-18.0); Mean Corpuscular HGB CONC 33.6 g/dL (32.0-36.0); Mean Corpuscular Hemoglobin 31.1 pg (27.0-31.0); Mean Corpuscular Volume 92.6 fl (78.0-98.0); Mean Platelet Volume 10.3 fL (7.4-10.4); Platelet Count 144 10x3/uL (130-400); RBC Distribution Width 15.3 % (11.5-14.5); Red Blood Cell (RBC) Count 3.25 mill/uL (4.70-6.10); White Blood Cell (WBC) Count 5.5 10x3/uL (4.8-10.8)
[2023-07-22 05:48] LABS: Anion Gap 8 mmol/L (10-20); BUN (Urea Nitrogen) 43 mg/dL (8.4-25.7); Calc. Creatinine Clearance 89 mL/min (70-130); Calcium 7.9 mg/dL (7.8-10.44); Carbon Dioxide 34 mmol/L (23-31); Chloride 100 mmol/L (98-107); Estimated GFR 85; Glucose 85 mg/dL (83-110); Potassium 3.8 mmol/L (3.5-5.1); Sodium 138 mmol/L (136-145)
[2023-07-22] MEDS: Albumin 25% 25 GM (100 mL) BOT IVPB SCH (11:56)
[2023-07-22] MEDS: Bumetanide 1 MG/4 ML VIAL IVP SCH (13:57)
[2023-07-22] MEDS: Metoprolol Tartrate 25 MG TAB PO SCH (20:21)
[2023-07-23 04:58] LABS: #Eosinphils 0.3 thou/uL (0.0-0.7); #Monocytes 0.6 thou/uL (0.11-0.59); #Neutrophils 3.5 thou/uL (1.40-6.50); %Basophils 0.4 % (0.0-1.0); %Eosinophils 5.1 % (0.0-10.0); %Lymphocytes 13.9 % (21.0-51.0); %Monocytes 12.5 % (0.0-10.0); %Neutrophils 67.9 % (42.0-75.0); Hematocrit 27.8 % (42.0-52.0); Hemoglobin 9.1 g/dL (14.0-18.0); Mean Corpuscular HGB CONC 32.7 g/dL (32.0-36.0); Mean Corpuscular Volume 94.6 fl (78.0-98.0); Mean Platelet Volume 10.1 fL (7.4-10.4); Platelet Count 124 10x3/uL (130-400); Red Blood Cell (RBC) Count 2.94 mill/uL (4.70-6.10); White Blood Cell (WBC) Count 5.1 10x3/uL (4.8-10.8)
[2023-07-23 05:18] LABS: Phosphorus 3.4 mg/dL (2.3-4.7)
[2023-07-23 05:22] LABS: Anion Gap 5 mmol/L (10-20); BUN (Urea Nitrogen) 39 mg/dL (8.4-25.7); Calc. Creatinine Clearance 96 mL/min (70-130); Calcium 8.1 mg/dL (7.8-10.44); Carbon Dioxide 37 mmol/L (23-31); Chloride 101 mmol/L (98-107); Estimated GFR 87; Glucose 88 mg/dL (83-110); Magnesium 1.9 mg/dL (1.6-2.6); Potassium 3.8 mmol/L (3.5-5.1); Sodium 139 mmol/L (136-145)
[2023-07-23] MEDS: Albumin 25% 25 GM (100 mL) BOT IVPB SCH (11:21)
[2023-07-24 05:25] LABS: #Eosinphils 0.3 thou/uL (0.0-0.7); #Monocytes 0.8 thou/uL (0.11-0.59); #Neutrophils 3.7 thou/uL (1.40-6.50); %Basophils 0.4 % (0.0-1.0); %Eosinophils 5.2 % (0.0-10.0); %Lymphocytes 13.7 % (21.0-51.0); %Monocytes 14.7 % (0.0-10.0); %Neutrophils 65.8 % (42.0-75.0); Hematocrit 29.5 % (42.0-52.0); Hemoglobin 9.7 g/dL (14.0-18.0); Mean Corpuscular HGB CONC 32.9 g/dL (32.0-36.0); Mean Corpuscular Hemoglobin 30.7 pg (27.0-31.0); Mean Corpuscular Volume 93.4 fl (78.0-98.0); Mean Platelet Volume 10.1 fL (7.4-10.4); Platelet Count 122 10x3/uL (130-400); RBC Distribution Width 14.8 % (11.5-14.5); Red Blood Cell (RBC) Count 3.16 mill/uL (4.70-6.10); White Blood Cell (WBC) Count 5.6 10x3/uL (4.8-10.8)
[2023-07-24 05:54] LABS: Anion Gap 7 mmol/L (10-20); BUN (Urea Nitrogen) 32 mg/dL (8.4-25.7); Calc. Creatinine Clearance 96 mL/min (70-130); Calcium 8.2 mg/dL (7.8-10.44); Carbon Dioxide 37 mmol/L (23-31); Chloride 99 mmol/L (98-107); Estimated GFR 87; Glucose 93 mg/dL (83-110); Potassium 3.6 mmol/L (3.5-5.1); Sodium 139 mmol/L (136-145)
[2023-07-24] MEDS: Losartan 25 MG TAB PO SCH (11:37)
[2023-07-25 05:19] LABS: #Eosinphils 0.3 thou/uL (0.0-0.7); #Monocytes 0.8 thou/uL (0.11-0.59); #Neutrophils 4.2 thou/uL (1.40-6.50); %Basophils 0.2 % (0.0-1.0); %Eosinophils 4.9 % (0.0-10.0); %Monocytes 13.7 % (0.0-10.0); %Neutrophils 68.9 % (42.0-75.0); Hematocrit 31.5 % (42.0-52.0); Hemoglobin 10.3 g/dL (14.0-18.0); Mean Corpuscular HGB CONC 32.7 g/dL (32.0-36.0); Mean Corpuscular Hemoglobin 30.7 pg (27.0-31.0); Mean Corpuscular Volume 93.8 fl (78.0-98.0); Mean Platelet Volume 10.2 fL (7.4-10.4); Platelet Count 121 10x3/uL (130-400); RBC Distribution Width 15.2 % (11.5-14.5); Red Blood Cell (RBC) Count 3.36 mill/uL (4.70-6.10); White Blood Cell (WBC) Count 6.1 10x3/uL (4.8-10.8)
[2023-07-25 05:50] LABS: BUN (Urea Nitrogen) 32 mg/dL (8.4-25.7); Calc. Creatinine Clearance 97 mL/min (70-130); Calcium 8.2 mg/dL (7.8-10.44); Estimated GFR 88; Glucose 98 mg/dL (83-110)
[2023-07-25 05:59] LABS: Anion Gap 13 mmol/L (10-20); Carbon Dioxide 30 mmol/L (23-31); Chloride 100 mmol/L (98-107); Potassium 3.8 mmol/L (3.5-5.1); Sodium 139 mmol/L (136-145)
[2023-07-25] MEDS: Losartan 25 MG TAB PO SCH (09:23)
[2023-07-25] MEDS: Torsemide 20 MG TAB PO SCH (14:30)
[2023-07-25] MEDS: Polyethylene Glycol 3350 17 GM Packet PO SCH (16:32)
[2023-07-26] MEDS: Torsemide 20 MG TAB PO SCH (09:37)
[2023-07-26 11:54] LABS: BUN (Urea Nitrogen) 31 mg/dL (8.4-25.7); Calc. Creatinine Clearance 88 mL/min (70-130); Calcium 8.3 mg/dL (7.8-10.44); Estimated GFR 85; Glucose 98 mg/dL (83-110)
[2023-07-26 12:03] LABS: Anion Gap 12 mmol/L (10-20); Carbon Dioxide 34 mmol/L (23-31); Chloride 96 mmol/L (98-107); Potassium 3.8 mmol/L (3.5-5.1); Sodium 138 mmol/L (136-145)
[2023-07-26] MEDS: Losartan 25 MG TAB PO SCH (14:58)
[2023-07-26 17:47] LABS: Creatinine, Urine 20.54 mg/dL (63-166)
[2023-07-27 09:52] LABS: BUN (Urea Nitrogen) 31 mg/dL (8.4-25.7); Calc. Creatinine Clearance 88 mL/min (70-130); Calcium 8.3 mg/dL (7.8-10.44); Estimated GFR 85; Glucose 97 mg/dL (83-110)
[2023-07-27 10:01] LABS: Anion Gap 13 mmol/L (10-20); Carbon Dioxide 33 mmol/L (23-31); Chloride 97 mmol/L (98-107); Potassium 3.8 mmol/L (3.5-5.1); Sodium 139 mmol/L (136-145)
[2023-07-27] MEDS: Bisacodyl 5 MG TAB PO SCH (18:51)
[2023-07-28 05:30] LABS: Anion Gap 9 mmol/L (10-20); BUN (Urea Nitrogen) 36 mg/dL (8.4-25.7); Calc. Creatinine Clearance 92 mL/min (70-130); Carbon Dioxide 37 mmol/L (23-31); Chloride 97 mmol/L (98-107); Estimated GFR 86; Glucose 86 mg/dL (83-110); Potassium 3.9 mmol/L (3.5-5.1); Sodium 139 mmol/L (136-145)
[2023-07-28] MEDS: Polyethylene Glycol 3350 17 GM Packet PO PRN (12:30)
[2023-07-29] MEDS: Torsemide 20 MG TAB PO SCH (14:39)
[2023-07-29 19:59] LABS: Anion Gap 12 mmol/L (10-20); BUN (Urea Nitrogen) 38 mg/dL (8.4-25.7); Calc. Creatinine Clearance 74 mL/min (70-130); Calcium 8.5 mg/dL (7.8-10.44); Carbon Dioxide 34 mmol/L (23-31); Chloride 95 mmol/L (98-107); Estimated GFR 83; Glucose 101 mg/dL (83-110); Potassium 3.9 mmol/L (3.5-5.1); Sodium 137 mmol/L (136-145)
[2023-07-30 05:33] LABS: Anion Gap 11 mmol/L (10-20); BUN (Urea Nitrogen) 39 mg/dL (8.4-25.7); Calc. Creatinine Clearance 79 mL/min (70-130); Calcium 8.2 mg/dL (7.8-10.44); Carbon Dioxide 35 mmol/L (23-31); Chloride 96 mmol/L (98-107); Estimated GFR 86; Glucose 91 mg/dL (83-110); Potassium 3.7 mmol/L (3.5-5.1); Sodium 138 mmol/L (136-145)
[2023-07-30] MEDS: Torsemide 20 MG TAB PO SCH (09:24)
[2023-07-31 05:13] LABS: BUN (Urea Nitrogen) 37 mg/dL (8.4-25.7); Calc. Creatinine Clearance 79 mL/min (70-130); Calcium 8.2 mg/dL (7.8-10.44); Estimated GFR 85; Glucose 90 mg/dL (83-110)
[2023-07-31 05:23] LABS: Chloride 95 mmol/L (98-107); Potassium 3.6 mmol/L (3.5-5.1); Sodium 139 mmol/L (136-145)
[2023-07-31 05:26] LABS: Anion Gap 9 mmol/L (10-20); Carbon Dioxide 39 mmol/L (23-31)
[2023-07-31 08:17] LABS: INR-International Normal Ratio 1.1; PTT 32.6 sec (22.9-36.1); Prothrombin Time 14.1 sec (12.0-14.7)
[2023-07-31] MEDS ORDERED: fentaNYL 50 mcg/mL 1 mL Vial ONE (12:12)
[2023-07-31] MEDS ORDERED: Midazolam HCl 2 mg/2 ml Vial ONE (12:13)
[2023-07-31] MEDS ORDERED: Lidocaine 1% w/Epinephrine 1:100K 20 ML VIAL ONE (12:14)
[2023-07-31 13:47] VITALS: TEMP 97.3
[2023-07-31 17:45] VITALS: BP 166/83
== END 2023-07-31 18:55 | disposition home or self-care (01) | DRG 699 ==
LOC: ERS 10:59 → SURG A 13:37
PROVIDERS: ADMIT Internal Medicine; ATTEND Family Medicine
PROC: 30233J1 Transfusion of Nonautologous Serum Albumin into Peripheral Vein, Percutaneous Approach (ICD-10-PCS; principal; 2023-07-22)
DX: N04.9 Nephrotic syndrome with unspecified morphologic changes (principal); E87.3 Alkalosis; I13.0 Hypertensive heart and chronic kidney disease with heart failure and stage 1 through stage 4 chronic kidney disease, or unspecified chronic kidney disease; I50.32 Chronic diastolic (congestive) heart failure; J90 Pleural effusion, not elsewhere classified; N17.9 Acute kidney failure, unspecified; N18.2 Chronic kidney disease, stage 2 (mild); Z88.1 Allergy status to other antibiotic agents; Z79.82 Long term (current) use of aspirin; Z79.899 Other long term (current) drug therapy; Z90.49 Acquired absence of other specified parts of digestive tract; Z90.89 Acquired absence of other organs; Z98.890 Other specified postprocedural states; E88.09 Other disorders of plasma-protein metabolism, not elsewhere classified; D63.1 Anemia in chronic kidney disease; K21.9 Gastro-esophageal reflux disease without esophagitis; K59.00 Constipation, unspecified
CPT/HCPCS: 36415; 71045; 80048; 80053; 82040; 82570; 83605; 83735; 83880; 84100; 84156; 85025; 85610; 85730; 87040; 96374; J1650; J1940; J2250; J3010; J3490; P9047

== ENCOUNTER 2023-08-23 11:49 | Outpatient (CLI) | payer MEDICARE | END 2023-08-23 11:50 | disposition home or self-care (01) | LOC: RAD 11:49 | PROVIDERS: ATTEND Internal Medicine Critical Care Medicine | DX: R06.00 Dyspnea, unspecified (principal); J90 Pleural effusion, not elsewhere classified | CPT/HCPCS: 71046 ==

== ENCOUNTER 2023-08-24 08:33 | Inpatient (IN) | payer MEDICARE ==
[2023-08-24 09:17] LABS: #Eosinphils 0.3 thou/uL (0.0-0.7); #Monocytes 0.6 thou/uL (0.11-0.59); %Basophils 0.4 % (0.0-1.0); %Lymphocytes 12.9 % (21.0-51.0); %Monocytes 11.3 % (0.0-10.0); Hemoglobin 11.1 g/dL (14.0-18.0); Mean Corpuscular HGB CONC 32.6 g/dL (32.0-36.0); Mean Corpuscular Hemoglobin 30.5 pg (27.0-31.0); Mean Corpuscular Volume 93.4 fl (78.0-98.0); Mean Platelet Volume 10.1 fL (7.4-10.4); Platelet Count 134 10x3/uL (130-400); RBC Distribution Width 14.8 % (11.5-14.5); Red Blood Cell (RBC) Count 3.64 mill/uL (4.70-6.10); White Blood Cell (WBC) Count 5.7 10x3/uL (4.8-10.8)
[2023-08-24 09:36] LABS: ALT (SGPT) 30 U/L (8-55); AST (SGOT) 21 U/L (5-34); Albumin 1.9 g/dL (3.4-4.8); Alkaline Phosphatase 79 U/L (40-110); Anion Gap 12 mmol/L (10-20); BUN (Urea Nitrogen) 43 mg/dL (8.4-25.7); Bilirubin, Total 0.5 mg/dL (0.2-1.2); Calc. Creatinine Clearance 0 mL/min (70-130); Calcium 8.1 mg/dL (7.8-10.44); Carbon Dioxide 28 mmol/L (23-31); Chloride 101 mmol/L (98-107); Estimated GFR 78; Globulin 3.3 g/dL (2.4-3.5); Glucose 82 mg/dL (83-110); Protein, Total 5.2 g/dL (5.8-8.1); Sodium 137 mmol/L (136-145)
[2023-08-24 09:39] LABS: Troponin I 0.012 ng/mL (< 0.028)
[2023-08-24] MEDS ORDERED: Furosemide 40 MG (4 mL) VIAL ONE (10:41)
[2023-08-24] MEDS: Metolazone 2.5 MG TAB PO SCH (11:30)
[2023-08-24] MEDS ORDERED: Senokot S 8.6-50 MG TAB PO PRN (11:57)
[2023-08-24] MEDS ORDERED: Bisacodyl 10 MG SUPP PR PRN (11:57)
[2023-08-24] MEDS ORDERED: Acetaminophen 325 MG TAB PO PRN (11:57)
[2023-08-24] MEDS ORDERED: Ondansetron PF 4 MG/2 ML Vial IVP PRN (11:57)
[2023-08-24] MEDS ORDERED: Ondansetron ODT 4 MG TAB PO PRN (11:57)
[2023-08-24 12:18] LABS: Troponin I 0.015 ng/mL (< 0.028)
[2023-08-24 17:09] LABS: Troponin I Less than 0.010 ng/mL (< 0.028)
[2023-08-24] MEDS ORDERED: Furosemide 100 MG (10 mL) VIAL ONE (17:44)
[2023-08-24] MEDS: Furosemide 100 MG (10 mL) VIAL SLOW IVP SCH (18:24)
[2023-08-24] MEDS: Magnesium Oxide 400 MG TAB PO SCH (22:46)
[2023-08-24] MEDS: Metoprolol Tartrate 25 MG TAB PO SCH (22:46)
[2023-08-24] MEDS: Atorvastatin Calcium 40 MG TAB PO SCH (22:46)
[2023-08-25 04:58] LABS: #Eosinphils 0.3 thou/uL (0.0-0.7); #Monocytes 0.9 thou/uL (0.11-0.59); #Neutrophils 5.3 thou/uL (1.40-6.50); %Basophils 0.5 % (0.0-1.0); %Eosinophils 4.4 % (0.0-10.0); %Lymphocytes 12.7 % (21.0-51.0); %Monocytes 12.5 % (0.0-10.0); %Neutrophils 69.6 % (42.0-75.0); Hemoglobin 12.1 g/dL (14.0-18.0); Mean Corpuscular HGB CONC 32.7 g/dL (32.0-36.0); Mean Corpuscular Hemoglobin 29.7 pg (27.0-31.0); Mean Corpuscular Volume 90.9 fl (78.0-98.0); Mean Platelet Volume 10.7 fL (7.4-10.4); Platelet Count 191 10x3/uL (130-400); RBC Distribution Width 14.6 % (11.5-14.5); Red Blood Cell (RBC) Count 4.07 mill/uL (4.70-6.10); White Blood Cell (WBC) Count 7.5 10x3/uL (4.8-10.8)
[2023-08-25 05:37] LABS: Anion Gap 12 mmol/L (10-20); BUN (Urea Nitrogen) 45 mg/dL (8.4-25.7); Calc. Creatinine Clearance 59 mL/min (70-130); Calcium 8.5 mg/dL (7.8-10.44); Carbon Dioxide 32 mmol/L (23-31); Chloride 95 mmol/L (98-107); Estimated GFR 73; Glucose 82 mg/dL (83-110); Potassium 3.9 mmol/L (3.5-5.1); Sodium 135 mmol/L (136-145)
[2023-08-25 06:19] LABS: INR-International Normal Ratio 1.1
[2023-08-25] MEDS: Furosemide 100 MG (10 mL) VIAL SLOW IVP SCH (06:25)
[2023-08-25] MEDS ORDERED: Aspirin 81 mg Enteric Coated Tablet PO SCH (09:00)
[2023-08-25] MEDS: Multivitamin W/ Minerals 1 TAB PO SCH (09:34)
[2023-08-25] MEDS: Losartan 25 MG TAB PO SCH (09:34)
[2023-08-26 05:32] LABS: Anion Gap 12 mmol/L (10-20); BUN (Urea Nitrogen) 53 mg/dL (8.4-25.7); Calc. Creatinine Clearance 48 mL/min (70-130); Calcium 8.1 mg/dL (7.8-10.44); Carbon Dioxide 34 mmol/L (23-31); Chloride 95 mmol/L (98-107); Estimated GFR 56; Glucose 91 mg/dL (83-110); Potassium 3.9 mmol/L (3.5-5.1); Sodium 137 mmol/L (136-145)
[2023-08-26] MEDS: Furosemide 40 MG (4 mL) VIAL SLOW IVP SCH (13:30)
[2023-08-27 17:19] LABS: Anion Gap 10 mmol/L (10-20); BUN (Urea Nitrogen) 53 mg/dL (8.4-25.7); Calc. Creatinine Clearance 47 mL/min (70-130); Calcium 7.9 mg/dL (7.8-10.44); Carbon Dioxide 35 mmol/L (23-31); Chloride 95 mmol/L (98-107); Estimated GFR 56; Glucose 95 mg/dL (83-110); Sodium 136 mmol/L (136-145)
[2023-08-28 05:49] LABS: Anion Gap 11 mmol/L (10-20); BUN (Urea Nitrogen) 49 mg/dL (8.4-25.7); Calc. Creatinine Clearance 63 mL/min (70-130); Calcium 7.7 mg/dL (7.8-10.44); Carbon Dioxide 33 mmol/L (23-31); Chloride 97 mmol/L (98-107); Estimated GFR 76; Glucose 91 mg/dL (83-110); Potassium 3.6 mmol/L (3.5-5.1); Sodium 137 mmol/L (136-145)
[2023-08-28] MEDS: Metolazone 5 MG TAB PO SCH (16:10)
[2023-08-29 05:08] LABS: Hematocrit 30.4 % (42.0-52.0); Mean Corpuscular HGB CONC 32.9 g/dL (32.0-36.0); Mean Corpuscular Hemoglobin 29.7 pg (27.0-31.0); Mean Corpuscular Volume 90.2 fl (78.0-98.0); Platelet Count 154 10x3/uL (130-400); RBC Distribution Width 14.7 % (11.5-14.5); Red Blood Cell (RBC) Count 3.37 mill/uL (4.70-6.10); White Blood Cell (WBC) Count 6.9 10x3/uL (4.8-10.8)
[2023-08-29 05:47] LABS: Anion Gap 8 mmol/L (10-20); BUN (Urea Nitrogen) 51 mg/dL (8.4-25.7); Calc. Creatinine Clearance 59 mL/min (70-130); Calcium 8.2 mg/dL (7.8-10.44); Carbon Dioxide 35 mmol/L (23-31); Chloride 96 mmol/L (98-107); Estimated GFR 73; Glucose 94 mg/dL (83-110); Potassium 3.8 mmol/L (3.5-5.1); Sodium 135 mmol/L (136-145)
[2023-08-29 11:39] VITALS: BMI 24.7
[2023-08-29 12:29] LABS: Pleural Fluid, Protein 2.4 g/dL
[2023-08-29 12:57] LABS: Fluid, pH - Pleural Fld Greater than 7.500 (7.60 - 7.66)
[2023-08-29] MEDS ORDERED: Lidocaine 1% w/Epinephrine 1:100K 20 ML VIAL ONE (13:26)
[2023-08-29] MEDS ORDERED: fentaNYL 50 mcg/mL 1 mL Vial ONE (13:26)
[2023-08-29] MEDS ORDERED: Sodium Bicarbonate 2.5 MEQ/5 ML SDV ONE (13:26)
[2023-08-29 13:32] LABS: RBC Count-Automated (BF) 10505 /cu.mm; WBC/Nucleated-Auto (BF) 392 /cu.mm
[2023-08-29 13:34] LABS: BF Color Yellow; Body Fluid Source Thoracentesis Fluid; Clarity Clear (Clear); Tube # EDTA
[2023-08-29 13:55] LABS: BF Segmented Neutrophils 5 %; Cell Count Non Hematic 42 %; Eosinophils 23 %; Lymphocytes 27 %
[2023-08-30 06:10] LABS: Anion Gap 8 mmol/L (10-20); BUN (Urea Nitrogen) 54 mg/dL (8.4-25.7); Calc. Creatinine Clearance 55 mL/min (70-130); Calcium 7.6 mg/dL (7.8-10.44); Carbon Dioxide 36 mmol/L (23-31); Chloride 96 mmol/L (98-107); Estimated GFR 66; Glucose 91 mg/dL (83-110); Potassium 3.7 mmol/L (3.5-5.1); Sodium 136 mmol/L (136-145)
[2023-08-30] MEDS: predniSONE 20 MG TAB PO SCH (16:34)
[2023-08-30] MEDS: Torsemide 20 MG TAB PO SCH (19:59)
[2023-08-31] MEDS: predniSONE 20 MG TAB PO SCH (10:09)
[2023-08-31] MEDS: Torsemide 20 MG TAB PO SCH (10:10)
[2023-08-31 11:44] VITALS: TEMP 97.8
[2023-08-31 12:59] LABS: Creatinine, Urine 134.3 mg/dL (63-166)
[2023-08-31 15:46] VITALS: BP 146/63
== END 2023-08-31 16:50 | disposition home or self-care (01) | DRG 683 ==
LOC: ERS 08:33 → ERHOLD 10:49 → 2NO 22:48
PROVIDERS: ADMIT Internal Medicine; ATTEND Hospitalist
PROC: 0TB03ZX Excision of Right Kidney, Percutaneous Approach, Diagnostic (ICD-10-PCS; principal; 2023-08-29)
PROC: 0W993ZZ Drainage of Right Pleural Cavity, Percutaneous Approach (ICD-10-PCS; 2023-08-29)
DX: N17.9 Acute kidney failure, unspecified (principal); E87.1 Hypo-osmolality and hyponatremia; I13.0 Hypertensive heart and chronic kidney disease with heart failure and stage 1 through stage 4 chronic kidney disease, or unspecified chronic kidney disease; E87.3 Alkalosis; J90 Pleural effusion, not elsewhere classified; I50.32 Chronic diastolic (congestive) heart failure; D63.1 Anemia in chronic kidney disease; N18.2 Chronic kidney disease, stage 2 (mild); Z90.49 Acquired absence of other specified parts of digestive tract; Z88.8 Allergy status to other drugs, medicaments and biological substances; Z79.82 Long term (current) use of aspirin; Z79.899 Other long term (current) drug therapy
CPT/HCPCS: 36415; 50200; 71045; 71046; 77012; 80048; 80053; 82150; 82570; 82945; 83615; 83880; 83986; 84155; 84156; 84157; 84478; 84484; 85025; 85027; 85060; 85610; 87116; 87206; 88112; 88305; 88313; 88329; 88346; 88348; 88350; 89051; 93005; 96374; J1940; J3010; J7512

== ENCOUNTER 2023-10-26 07:34 | Day surgery (SDC) | payer MEDICARE ==
[2023-10-25 13:30] VITALS: BMI 23.7
== END 2023-10-26 15:45 | disposition home or self-care (01) ==
LOC: SDC 07:34
PROVIDERS: ATTEND Surgery
PROC: 0YQ50ZZ Repair Right Inguinal Region, Open Approach (ICD-10-PCS; principal; 2023-10-26)
PROC: 8E0W0CZ Robotic Assisted Procedure of Trunk Region, Open Approach (ICD-10-PCS; 2023-10-26)
DX: K40.90 Unilateral inguinal hernia, without obstruction or gangrene, not specified as recurrent (principal); N04.9 Nephrotic syndrome with unspecified morphologic changes; I12.9 Hypertensive chronic kidney disease with stage 1 through stage 4 chronic kidney disease, or unspecified chronic kidney disease; N18.2 Chronic kidney disease, stage 2 (mild); D69.6 Thrombocytopenia, unspecified; J90 Pleural effusion, not elsewhere classified; M32.9 Systemic lupus erythematosus, unspecified; Z79.82 Long term (current) use of aspirin; Z79.899 Other long term (current) drug therapy; Z86.010 Personal history of colon polyps; Z87.19 Personal history of other diseases of the digestive system; Z91.018 Allergy to other foods; Z88.1 Allergy status to other antibiotic agents
CPT/HCPCS: 49520; A4306; C1781; J0171; J0665; J1100; J1200; J2405; J2704; J3490; S0028

== ENCOUNTER 2023-12-01 10:52 | Outpatient (CLI) | payer MEDICARE | END 2023-12-01 10:53 | disposition home or self-care (01) | LOC: RAD 10:52 | PROVIDERS: ATTEND Internal Medicine Critical Care Medicine | DX: R06.00 Dyspnea, unspecified (principal); J98.11 Atelectasis; J90 Pleural effusion, not elsewhere classified | CPT/HCPCS: 71046 ==

== ENCOUNTER 2023-12-25 08:22 | Emergency (ER) | payer MEDICARE ==
[2023-12-25] MEDS ORDERED: Lidocaine 1% w/Epinephrine 1:100K 20 ML VIAL ONE (08:37)
[2023-12-25] MEDS ORDERED: Bacitracin 1 PK ONE (08:37)
[2023-12-25] MEDS ORDERED: Boostrix 0.5 ML (Tdap) VIAL (>/=7 yrs of age) ONE (08:37)
[2023-12-25 09:02] LABS: Hematocrit 34.8 % (42.0-52.0); Hemoglobin 11.6 g/dL (14.0-18.0); Mean Corpuscular HGB CONC 33.3 g/dL (32.0-36.0); Mean Corpuscular Hemoglobin 28.2 pg (27.0-31.0); Mean Corpuscular Volume 84.5 fL (78.0-98.0); Mean Platelet Volume 10.1 fL (7.4-10.4); Platelet Count 120 10x3/uL (130-400); RBC Distribution Width 15.9 % (11.5-14.5); Red Blood Cell (RBC) Count 4.12 mill/uL (4.70-6.10)
[2023-12-25 09:22] LABS: Troponin I Less than 0.010 ng/mL (< 0.028)
[2023-12-25 09:26] LABS: Burr Cells MODERATE= 6-15 cells HPF (0-1); Eosinophils 6 % (0-10); Lymphocytes 6 % (21-51); Monocytes 6 % (0-10); Neutrophil 81 % (42-75); Plasma Cells 1 % (0-0); Platelet Adequacy Comment Platelets Decreased; Poikilocytosis SLIGHT = 6-15 cells HPF (0-5)
[2023-12-25 10:31] LABS: ALT (SGPT) 20 U/L (8-55); AST (SGOT) 22 U/L (5-34); Albumin 1.3 g/dL (3.4-4.8); Alkaline Phosphatase 81 U/L (40-110); Anion Gap 10 mmol/L (10-20); BUN (Urea Nitrogen) 17 mg/dL (8.4-25.7); Bilirubin, Total 0.4 mg/dL (0.2-1.2); Calc. Creatinine Clearance 0 mL/min (70-130); Calcium 8.1 mg/dL (7.8-10.44); Carbon Dioxide 25 mmol/L (23-31); Chloride 103 mmol/L (98-107); Estimated GFR 90; Globulin 3.2 g/dL (2.4-3.5); Glucose 88 mg/dL (83-110); Potassium 4.3 mmol/L (3.5-5.1); Protein, Total 4.5 g/dL (5.8-8.1)
[2023-12-25 10:38] LABS: Sodium 134 mmol/L (136-145)
== END 2023-12-25 15:22 | disposition home or self-care (01) ==
LOC: ERS 08:22
DX: S06.0X0A Concussion without loss of consciousness, initial encounter (principal); S01.81XA Laceration without foreign body of other part of head, initial encounter; J90 Pleural effusion, not elsewhere classified; I13.0 Hypertensive heart and chronic kidney disease with heart failure and stage 1 through stage 4 chronic kidney disease, or unspecified chronic kidney disease; N18.2 Chronic kidney disease, stage 2 (mild); W17.89XA Other fall from one level to another, initial encounter; Z23 Encounter for immunization
CPT/HCPCS: 12013; 36415; 70450; 71045; 72125; 80053; 83880; 84484; 85025; 90471; 90715; 93005

== ENCOUNTER 2024-02-06 13:33 | Emergency (ER) | payer MEDICARE ==
[2024-02-06 14:40] LABS: #Basophils 0.03 10x3/uL (0.0-0.2); %Basophils 0.3 % (0.0-1.0); %Eosinophils 1.3 % (0.0-10.0); %Lymphocytes 7.8 % (21.0-51.0); %Monocytes 8.1 % (0.0-10.0); %Neutrophils 82.2 % (42.0-75.0); Hematocrit 36.2 % (42.0-52.0); Hemoglobin 11.6 g/dL (14.0-18.0); Mean Corpuscular Hemoglobin 27.6 pg (27.0-31.0); Mean Corpuscular Volume 86.2 fL (78.0-98.0); Mean Platelet Volume 9.7 fL (7.4-10.4); Platelet Count 186 10x3/uL (130-400)
[2024-02-06 14:59] LABS: ALT (SGPT) 21 U/L (8-55); AST (SGOT) 28 U/L (5-34); Albumin 1.4 g/dL (3.4-4.8); Alkaline Phosphatase 86 U/L (40-110); Anion Gap 10 mmol/L (10-20); BUN (Urea Nitrogen) 19 mg/dL (8.4-25.7); Bilirubin, Total 0.6 mg/dL (0.2-1.2); Calc. Creatinine Clearance 0 mL/min (70-130); Carbon Dioxide 31 mmol/L (23-31); Chloride 103 mmol/L (98-107); Estimated GFR 84; Globulin 3.8 g/dL (2.4-3.5); Glucose 108 mg/dL (83-110); Potassium 4.2 mmol/L (3.5-5.1); Protein, Total 5.2 g/dL (5.8-8.1); Sodium 140 mmol/L (136-145)
[2024-02-06 15:04] LABS: Troponin I 0.021 ng/mL (< 0.028)
== END 2024-02-06 17:11 | disposition home or self-care (01) ==
LOC: ERS 13:33
DX: R60.9 Edema, unspecified (principal); K62.89 Other specified diseases of anus and rectum; I13.0 Hypertensive heart and chronic kidney disease with heart failure and stage 1 through stage 4 chronic kidney disease, or unspecified chronic kidney disease; N18.2 Chronic kidney disease, stage 2 (mild); I50.9 Heart failure, unspecified
CPT/HCPCS: 36415; 71045; 80053; 83880; 84484; 85025; 93005

== ENCOUNTER 2024-02-29 10:51 | Inpatient (IN) | payer MEDICARE ==
[2024-02-29 12:05] LABS: #Basophils 0.04 10x3/uL (0.0-0.2); %Basophils 0.6 % (0.0-1.0); %Eosinophils 1.2 % (0.0-10.0); %Lymphocytes 9.3 % (21.0-51.0); %Neutrophils 77.6 % (42.0-75.0); Hematocrit 31.8 % (42.0-52.0); Hemoglobin 10.4 g/dL (14.0-18.0); Mean Corpuscular HGB CONC 32.7 g/dL (32.0-36.0); Mean Corpuscular Hemoglobin 29.4 pg (27.0-31.0); Mean Corpuscular Volume 89.8 fL (78.0-98.0); Mean Platelet Volume 9.4 fL (7.4-10.4); Platelet Count 167 10x3/uL (130-400); RBC Distribution Width 18.4 % (11.5-14.5); Red Blood Cell (RBC) Count 3.54 mill/uL (4.70-6.10)
[2024-02-29 12:22] LABS: ALT (SGPT) 26 U/L (8-55); AST (SGOT) 29 U/L (5-34); Albumin 1.3 g/dL (3.4-4.8); Alkaline Phosphatase 76 U/L (40-110); Anion Gap 9 mmol/L (10-20); BUN (Urea Nitrogen) 21 mg/dL (8.4-25.7); Bilirubin, Total 0.6 mg/dL (0.2-1.2); Calc. Creatinine Clearance 0 mL/min (70-130); Carbon Dioxide 33 mmol/L (23-31); Chloride 99 mmol/L (98-107); Estimated GFR 86; Globulin 3.3 g/dL (2.4-3.5); Glucose 85 mg/dL (83-110); Magnesium 1.9 mg/dL (1.6-2.6); Potassium 3.8 mmol/L (3.5-5.1); Protein, Total 4.6 g/dL (5.8-8.1); Sodium 137 mmol/L (136-145)
[2024-02-29 12:24] LABS: Troponin I 0.027 ng/mL (< 0.028)
[2024-02-29 13:10] LABS: Bacteria/HPF None Seen HPF (None Seen); Bilirubin Negative (Negative); Blood, Urine Negative (Negative); CAUTI Indications for Culture Dysuria,urgency,freq; Clarity Clear (Clear); Glucose, Urine (Dipstick) Normal (Negative); Ketone, Urine Negative (Negative); Leukocyte Negative Leu/uL (Negative); Nitrite Negative (Negative); Protein, Urine (Dipstick) 30 mg/dL (Neg-Trace); RBC/HPF None Seen HPF (0-3); Specific Gravity, Urine 1.006 (1.002-1.036); Squamous Epithelial None Seen HPF (0-3); Urobilinogen Normal mg/dL (Less than 2); WBC/HPF 0-3 HPF (0-3)
[2024-02-29 13:16] LABS: Urine Culture Reflex No No
[2024-02-29] MEDS ORDERED: Iopamidol-370 76% 500 ML MDV (1 ML CHARGE) ONE (14:20)
[2024-02-29] MEDS ORDERED: Furosemide 40 MG (4 mL) VIAL ONE (14:46)
[2024-02-29] MEDS ORDERED: Aspirin Chewable 81 MG TAB ONE (14:46)
[2024-02-29] MEDS ORDERED: Guaifenesin DM 100-10/5 ML UDCUP PO PRN (15:24)
[2024-02-29] MEDS ORDERED: Acetaminophen 325 MG TAB PO PRN (15:24)
[2024-02-29] MEDS ORDERED: Ondansetron PF 4 MG/2 ML Vial IVP PRN (15:24)
[2024-02-29] MEDS ORDERED: Acetaminophen 650 MG Suppository PR PRN (15:24)
[2024-02-29] MEDS ORDERED: Ondansetron ODT 4 MG TAB PO PRN (15:24)
[2024-02-29 15:57] LABS: Troponin I 0.023 ng/mL (< 0.028)
[2024-02-29] MEDS: Atorvastatin Calcium 40 MG TAB PO SCH (22:12)
[2024-02-29] MEDS: Tacrolimus 1 MG CAP PO SCH (22:12)
[2024-02-29] MEDS: EPOETIN ALFA-EPBX 10,000 UNITS/ML VIAL SC SCH (22:42)
[2024-03-01] MEDS: Albumin 25% 25 GM (100 mL) BOT IVPB SCH (00:04)
[2024-03-01 05:21] LABS: #Basophils Less than 0.03 10x3/uL (0.0-0.2); %Basophils 0.4 % (0.0-1.0); %Eosinophils 2.6 % (0.0-10.0); %Lymphocytes 13.3 % (21.0-51.0); %Monocytes 11.3 % (0.0-10.0); Hematocrit 30.3 % (42.0-52.0); Hemoglobin 9.8 g/dL (14.0-18.0); Mean Corpuscular HGB CONC 32.3 g/dL (32.0-36.0); Mean Corpuscular Hemoglobin 28.3 pg (27.0-31.0); Mean Corpuscular Volume 87.6 fL (78.0-98.0); Mean Platelet Volume 9.9 fL (7.4-10.4); Platelet Count 141 10x3/uL (130-400); RBC Distribution Width 18.6 % (11.5-14.5); Red Blood Cell (RBC) Count 3.46 mill/uL (4.70-6.10)
[2024-03-01 05:36] LABS: ALT (SGPT) 19 U/L (8-55); AST (SGOT) 21 U/L (5-34); Albumin 1.5 g/dL (3.4-4.8); Alkaline Phosphatase 65 U/L (40-110); Anion Gap 9 mmol/L (10-20); BUN (Urea Nitrogen) 22 mg/dL (8.4-25.7); Bilirubin, Total 0.8 mg/dL (0.2-1.2); Calc. Creatinine Clearance 85 mL/min (70-130); Calcium 7.9 mg/dL (7.8-10.44); Carbon Dioxide 35 mmol/L (23-31); Chloride 97 mmol/L (98-107); Estimated GFR 86; Globulin 2.9 g/dL (2.4-3.5); Glucose 76 mg/dL (83-110); Potassium 3.4 mmol/L (3.5-5.1); Protein, Total 4.4 g/dL (5.8-8.1); Sodium 138 mmol/L (136-145)
[2024-03-01] MEDS: Furosemide 40 MG (4 mL) VIAL SLOW IVP SCH (05:41)
[2024-03-01] MEDS ORDERED: Losartan 25 MG TAB PO SCH (09:00)
[2024-03-01] MEDS ORDERED: Polyethylene Glycol 3350 17 GM Packet PO PRN (09:21)
[2024-03-01] MEDS: Pantoprazole DR 40 MG TAB PO SCH (10:00)
[2024-03-01] MEDS: Multivit, Therapeutic 1 TAB PO SCH (10:00)
[2024-03-01] MEDS: Potassium Chloride 20 MEQ TAB PO SCH (10:01)
[2024-03-01] MEDS: Enoxaparin 40 MG (0.4 mL) SYRINGE SC SCH (10:02)
[2024-03-01] MEDS: Senokot S 8.6-50 MG TAB PO SCH (20:01)
[2024-03-01] MEDS: Magnesium Oxide 400 MG TAB PO SCH (20:01)
[2024-03-01] MEDS: Metoprolol Tartrate 25 MG TAB PO SCH (20:01)
[2024-03-02 04:29] LABS: #Basophils Less than 0.03 10x3/uL (0.0-0.2); %Basophils 0.2 % (0.0-1.0); %Eosinophils 2.3 % (0.0-10.0); %Lymphocytes 13.5 % (21.0-51.0); %Monocytes 11.5 % (0.0-10.0); %Neutrophils 72.3 % (42.0-75.0); Hematocrit 25.7 % (42.0-52.0); Hemoglobin 8.4 g/dL (14.0-18.0); Mean Corpuscular HGB CONC 32.7 g/dL (32.0-36.0); Mean Corpuscular Hemoglobin 28.6 pg (27.0-31.0); Mean Corpuscular Volume 87.4 fL (78.0-98.0); Mean Platelet Volume 9.7 fL (7.4-10.4); Platelet Count 125 10x3/uL (130-400); RBC Distribution Width 18.6 % (11.5-14.5); Red Blood Cell (RBC) Count 2.94 mill/uL (4.70-6.10)
[2024-03-02 04:41] LABS: Anion Gap 8 mmol/L (10-20); BUN (Urea Nitrogen) 23 mg/dL (8.4-25.7); Calc. Creatinine Clearance 72 mL/min (70-130); Calcium 7.7 mg/dL (7.8-10.44); Carbon Dioxide 33 mmol/L (23-31); Chloride 97 mmol/L (98-107); Estimated GFR 81; Glucose 84 mg/dL (83-110); Potassium 3.4 mmol/L (3.5-5.1); Sodium 135 mmol/L (136-145)
[2024-03-02] MEDS: AcetaZOLAMIDE 250 MG TAB PO SCH ×2 (11:02→21:10)
[2024-03-02] MEDS: Potassium Chloride 20 MEQ TAB PO SCH (11:03)
[2024-03-02] MEDS: Tacrolimus 1 MG CAP PO SCH (21:09)
[2024-03-03 05:13] LABS: #Basophils Less than 0.03 10x3/uL (0.0-0.2); %Basophils 0.4 % (0.0-1.0); %Eosinophils 3.3 % (0.0-10.0); %Monocytes 12.3 % (0.0-10.0); %Neutrophils 68.8 % (42.0-75.0); Hematocrit 27.9 % (42.0-52.0); Hemoglobin 9.2 g/dL (14.0-18.0); Mean Corpuscular Hemoglobin 28.8 pg (27.0-31.0); Mean Corpuscular Volume 87.5 fL (78.0-98.0); Platelet Count 131 10x3/uL (130-400); RBC Distribution Width 18.2 % (11.5-14.5); Red Blood Cell (RBC) Count 3.19 mill/uL (4.70-6.10)
[2024-03-03] MEDS: hydrALAZINE 20 MG/ML VIAL SLOW IVP PRN (05:29)
[2024-03-03 05:31] LABS: Anion Gap 9 mmol/L (10-20); BUN (Urea Nitrogen) 20 mg/dL (8.4-25.7); Calc. Creatinine Clearance 85 mL/min (70-130); Calcium 7.7 mg/dL (7.8-10.44); Carbon Dioxide 31 mmol/L (23-31); Chloride 99 mmol/L (98-107); Estimated GFR 86; Glucose 77 mg/dL (83-110); Potassium 3.4 mmol/L (3.5-5.1); Sodium 136 mmol/L (136-145)
[2024-03-03] MEDS: Potassium Chloride 20 MEQ TAB PO SCH (09:09)
[2024-03-04 05:40] LABS: #Basophils Less than 0.03 10x3/uL (0.0-0.2); %Basophils 0.3 % (0.0-1.0); %Lymphocytes 15.6 % (21.0-51.0); %Monocytes 12.3 % (0.0-10.0); %Neutrophils 68.5 % (42.0-75.0); Hematocrit 32.4 % (42.0-52.0); Hemoglobin 10.7 g/dL (14.0-18.0); Mean Corpuscular Hemoglobin 28.5 pg (27.0-31.0); Mean Corpuscular Volume 86.4 fL (78.0-98.0); Platelet Count 163 10x3/uL (130-400); RBC Distribution Width 18.1 % (11.5-14.5); Red Blood Cell (RBC) Count 3.75 mill/uL (4.70-6.10)
[2024-03-04 05:53] LABS: Anion Gap 13 mmol/L (10-20); BUN (Urea Nitrogen) 21 mg/dL (8.4-25.7); Calc. Creatinine Clearance 73 mL/min (70-130); Calcium 7.9 mg/dL (7.8-10.44); Carbon Dioxide 24 mmol/L (23-31); Chloride 100 mmol/L (98-107); Estimated GFR 84; Glucose 73 mg/dL (83-110); Potassium 4.1 mmol/L (3.5-5.1); Sodium 133 mmol/L (136-145)
[2024-03-05 01:45] VITALS: TEMP 97.7
[2024-03-05 08:06] LABS: #Basophils Less than 0.03 10x3/uL (0.0-0.2); %Basophils 0.4 % (0.0-1.0); %Eosinophils 3.6 % (0.0-10.0); %Lymphocytes 17.1 % (21.0-51.0); %Monocytes 12.5 % (0.0-10.0); %Neutrophils 66.2 % (42.0-75.0); Hematocrit 29.3 % (42.0-52.0); Hemoglobin 9.6 g/dL (14.0-18.0); Mean Corpuscular HGB CONC 32.8 g/dL (32.0-36.0); Mean Corpuscular Hemoglobin 29.4 pg (27.0-31.0); Mean Corpuscular Volume 89.6 fL (78.0-98.0); Mean Platelet Volume 9.5 fL (7.4-10.4); Platelet Count 137 10x3/uL (130-400); RBC Distribution Width 17.8 % (11.5-14.5); Red Blood Cell (RBC) Count 3.27 mill/uL (4.70-6.10)
[2024-03-05 08:26] LABS: Anion Gap 11 mmol/L (10-20); BUN (Urea Nitrogen) 22 mg/dL (8.4-25.7); Calc. Creatinine Clearance 74 mL/min (70-130); Calcium 7.7 mg/dL (7.8-10.44); Carbon Dioxide 25 mmol/L (23-31); Chloride 101 mmol/L (98-107); Estimated GFR 84; Glucose 82 mg/dL (83-110); Potassium 3.7 mmol/L (3.5-5.1); Sodium 133 mmol/L (136-145)
[2024-03-05 14:33] VITALS: BMI 24.7
[2024-03-05 16:34] VITALS: BP 147/79
[2024-03-06 14:17] LABS: Tacrolimus 5.3 ng/mL (2.0-20.0)
[2024-03-07 19:13] LABS: Tacrolimus 5.9 ng/mL (2.0-20.0)
== END 2024-03-05 17:54 | disposition home or self-care (01) | DRG 698 ==
LOC: ERS 10:51 → ERHOLD 15:06 → 2NO 18:20 → OBSVTOIN 03-01 09:30 → T4-B 03-04 10:02
PROVIDERS: ADMIT Internal Medicine; ATTEND Hospitalist
DX: N04.9 Nephrotic syndrome with unspecified morphologic changes (principal); I50.33 Acute on chronic diastolic (congestive) heart failure; J96.01 Acute respiratory failure with hypoxia; I13.0 Hypertensive heart and chronic kidney disease with heart failure and stage 1 through stage 4 chronic kidney disease, or unspecified chronic kidney disease; E87.3 Alkalosis; N17.9 Acute kidney failure, unspecified; N18.2 Chronic kidney disease, stage 2 (mild); R33.9 Retention of urine, unspecified; E87.6 Hypokalemia; K62.3 Rectal prolapse; D63.1 Anemia in chronic kidney disease; E88.09 Other disorders of plasma-protein metabolism, not elsewhere classified; Z90.49 Acquired absence of other specified parts of digestive tract; Z88.8 Allergy status to other drugs, medicaments and biological substances; Z88.1 Allergy status to other antibiotic agents; Z79.899 Other long term (current) drug therapy; Z98.890 Other specified postprocedural states
CPT/HCPCS: 36415; 36416; 51702; 71045; 74177; 80048; 80053; 80197; 81001; 83735; 83880; 84484; 85025; 87086; 93005; 96372; 96374; 96375; 96376; G0378; J0360; J1642; J1650; J1940; J7507; P9047; Q5106; Q9967

== ENCOUNTER 2024-06-06 10:28 | Outpatient (CLI) | payer MEDICARE | END 2024-06-06 10:29 | disposition home or self-care (01) | LOC: RAD 10:28 | PROVIDERS: ATTEND Internal Medicine Critical Care Medicine | DX: R06.00 Dyspnea, unspecified (principal); J90 Pleural effusion, not elsewhere classified | CPT/HCPCS: 71048 ==

== ENCOUNTER 2024-07-02 13:39 | Emergency (ER) | payer MEDICARE ==
[2024-07-02] MEDS ORDERED: Morphine 2 MG/ML VIAL ONE (14:33)
[2024-07-02] MEDS ORDERED: Ondansetron PF 4 MG/2 ML Vial ONE (14:33)
[2024-07-02 15:44] LABS: #Basophils Less than 0.03 10x3/uL (0.0-0.2); %Basophils 0.2 % (0.0-1.0); %Eosinophils 0.5 % (0.0-10.0); %Lymphocytes 4.2 % (21.0-51.0); %Monocytes 9.9 % (0.0-10.0); Hematocrit 32.6 % (42.0-52.0); Hemoglobin 10.6 g/dL (14.0-18.0); Mean Corpuscular HGB CONC 32.5 g/dL (32.0-36.0); Mean Corpuscular Hemoglobin 27.7 pg (27.0-31.0); Mean Corpuscular Volume 85.1 fL (78.0-98.0); Platelet Count 134 10x3/uL (130-400); RBC Distribution Width 14.1 % (11.5-14.5); Red Blood Cell (RBC) Count 3.83 mill/uL (4.70-6.10)
[2024-07-02 16:01] LABS: ALT (SGPT) 38 U/L (8-55); AST (SGOT) 18 U/L (5-34); Albumin 2.1 g/dL (3.4-4.8); Alkaline Phosphatase 74 U/L (40-110); Anion Gap 9 mmol/L (10-20); BUN (Urea Nitrogen) 21 mg/dL (8.4-25.7); Bilirubin, Total 0.8 mg/dL (0.2-1.2); CRP,High Sensitivity (Inhouse) 2.55 mg/dL (< or = 0.5); Calc. Creatinine Clearance 0 mL/min (70-130); Calcium 8.4 mg/dL (7.8-10.44); Carbon Dioxide 29 mmol/L (23-31); Chloride 101 mmol/L (98-107); Estimated GFR 86; Globulin 3.9 g/dL (2.4-3.5); Glucose 93 mg/dL (83-110); Potassium 4.2 mmol/L (3.5-5.1); Sodium 135 mmol/L (136-145)
== END 2024-07-02 16:44 | disposition home or self-care (01) ==
LOC: ERS 13:39
DX: M26.622 Arthralgia of left temporomandibular joint (principal); I13.0 Hypertensive heart and chronic kidney disease with heart failure and stage 1 through stage 4 chronic kidney disease, or unspecified chronic kidney disease; N18.2 Chronic kidney disease, stage 2 (mild); I50.9 Heart failure, unspecified
CPT/HCPCS: 36415; 70491; 71260; 80053; 84484; 85025; 86141; 93005; 94760; J2272; J2405; 96374; 96375

== ENCOUNTER 2024-08-12 15:39 | Emergency (ER) | payer MEDICARE ==
[2024-08-12] MEDS ORDERED: Ketorolac Tromethamine 30 MG (1 mL) VIAL ONE (17:50)
[2024-08-12] MEDS ORDERED: Dexamethasone 10 MG/ML VIAL ONE (17:50)
== END 2024-08-12 18:29 | disposition home or self-care (01) ==
LOC: ERS 15:39
DX: M25.532 Pain in left wrist (principal); M79.642 Pain in left hand; I12.9 Hypertensive chronic kidney disease with stage 1 through stage 4 chronic kidney disease, or unspecified chronic kidney disease; N18.2 Chronic kidney disease, stage 2 (mild)
CPT/HCPCS: 73130; J1100; J1885; 96372; 99283